=== PATIENT | female | born 1995 ===

== ENCOUNTER 2018-12-13 10:13 | Emergency (ER) | payer MEDICAID ==
[2018-12-13 10:21] VITALS: BMI 31.4
[2018-12-13 10:23] VITALS: O2SAT 100
--- NOTE | 2018-12-13 11:13 | ED PDOC ---
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 Denies fever, nausea, vomiting, vaginal bleeding. Abnormal Vaginal Bleeding: No Past Medical History Reviewed: Nursing Documentation, Vital Signs Vital Signs: Last Vital Signs Temp 98.2 F 12/13/18 10:22 Pulse 84 12/13/18 10:22 Resp 20 12/13/18 10:22 BP 111/68 12/13/18 10:22 Pulse Ox 100 12/13/18 10:22 - Medical History PMH: No Chronic Diseases - Surgical History Surgical History: No Surg Hx - Family History Family History: States: Unknown Family Hx - Living Arrangements Living Arrangements: With Family - Social History Current smoker - smoking cessation education provided: No Alcohol: None - Home Medications Home Medications: Ambulatory Orders Medication Instructions Recorded Pnv No.95/Ferrous Fum/Folic AC 1 each PO DAILY #30 tablet 12/13/18 [ Vitamin Tablet] - Allergies Allergies/Adverse Reactions: Allergies Allergy/AdvReac Type Severity Reaction Status Date / Time No Known Allergies Allergy Verified 12/13/18 10:34 Review of Systems Constitutional: Negative for: Fever, Chills Gastrointestinal: Positive for: Abdominal Pain. Negative for: Nausea, Vomiting, Diarrhea Genitourinary Female: Positive for: Vaginal Discharge. Negative for: Dysuria, Hematuria, Vaginal Bleeding Musculoskeletal: Negative for: Back Pain Skin: Negative for: Rash Neurological: Negative for: Headache Physical Exam - Reviewed Nursing Documentation Reviewed: Yes Vital Signs Reviewed: Yes - Physical Exam Appears: Positive for: Well, No Acute Distress Skin: Positive for: Normal Color, Warm, Dry Eye Exam: Positive for: Normal appearance, EOMI, PERRL Cardiovascular/Chest: Positive for: Regular Rate, Rhythm Respiratory: Positive for: Normal Breath Sounds Gastrointestinal/Abdominal: Positive for: Normal Exam, Bowel Sounds, Soft. Negative for: Tenderness Pelvic Exam: Positive for: Discharge (Thin white), Other ([employer]: Kristi Mello RN). Negative for: Active Bleeding, Blood, Lesions, Tender Adnexa, Tender Uterus Back: Positive for: Normal Inspection. Negative for: L CVA Tenderness, R CVA Tenderness Extremity: Positive for: Normal ROM Neurologic/Psych: Positive for: Alert, Oriented - Laboratory Results Urine POC: Positive Urine dip results: Positive for: Leukocyte Esterase (Trace), Ketones (Trace), Bilirubin (Small), Protein (100 mg/dl). Negative for: Blood, Nitrate, Glucose - ECG O2 Sat by Pulse Oximetry: 100 Medical Decision Making Medical Decision Makin yo female with vaginal discharge. - genital culture - GC chlamydia - UA Ordered Rocephin 250 mg IM and Zithromax 1 g PO. Pt left before treatment complete. Disposition - Clinical Impression Clinical Impression: Vaginal discharge during in first trimester - Disposition Referrals: [facility] [place] [facility]Outside[facility] [Outside[facility] Disposition: Left W/O Treatment Disposition Time: 14:07 Condition: UNKNOWN Prescriptions: Pnv No.95/Ferrous Fum/Folic AC [ Vitamin Tablet] 1 each PO DAILY #30 tablet Instructions: Vaginal Discharge in Adults, Care Forms: [facility] (Romansh) Print Language: BRITISH [place]
[2018-12-13 11:55] LABS: SQUAMOUS EPITHIAL 8 /hpf (0-5); URINE BACTERIA RARE (<OCC); URINE BILIRUBIN NEGATIVE (NEGATIVE); URINE BLOOD NEGATIVE (NEGATIVE); URINE CLARITY CLOUDY (Clear); URINE COLOR AMBER (YELLOW); URINE GLUCOSE (UA) NEG (NEGATIVE); URINE LEUKOCYTE ESTERASE SMALL Leu/uL (Negative); URINE PROTEIN 100 mg/dL (NEGATIVE); URINE UROBILINOGEN 0.2-1.0 mg/dL (0.2-1.0)
[2018-12-13 13:01] VITALS: PULSE 60; RESP 16
[2018-12-13 13:06] VITALS: BP 105/62; TEMP 98.1
[2018-12-13] MEDS ORDERED: cefTRIAXone (Rocephin) 250 mg Inj IM STA (14:00)
== END 2018-12-13 14:14 | disposition home or self-care (01) ==
LOC: H.ER 10:13
DX: O23.599 Infection of other part of genital tract in pregnancy, unspecified trimester (principal); O26.891 Other specified pregnancy related conditions, first trimester